=== PATIENT | male | born 1940 | race Caucasian/White ===

== ENCOUNTER → 2020-08-23 12:49 | Outpatient (BNVA) | payer MEDICARE, SELFPAY | PROVIDERS: PCP Internal Medicine; Visit Provider Urology | DX: C61 Malignant neoplasm of prostate (principal); R35.1 Nocturia; Z79.899 Other long term (current) drug therapy | CPT/HCPCS: 99214 ==

== ENCOUNTER → 2021-01-31 13:16 | Outpatient (BNVA) | payer MEDICARE, SELFPAY | PROVIDERS: PCP Internal Medicine; Visit Provider Urology | DX: Z13.9 Encounter for screening, unspecified (principal); N40.1 Benign prostatic hyperplasia with lower urinary tract symptoms; N13.8 Other obstructive and reflux uropathy | CPT/HCPCS: 81002; 99212 ==

== ENCOUNTER → 2021-06-06 15:18 | Outpatient (BNVA) | payer MEDICARE, SELFPAY | PROVIDERS: PCP Internal Medicine; Visit Provider Urology | DX: N40.1 Benign prostatic hyperplasia with lower urinary tract symptoms (principal); R35.1 Nocturia; R39.12 Poor urinary stream; C61 Malignant neoplasm of prostate; Z79.899 Other long term (current) drug therapy | CPT/HCPCS: 99212 ==

== ENCOUNTER → 2021-12-05 10:44 | Outpatient (BNVA) | payer MEDICARE, SELFPAY | PROVIDERS: Visit Provider Urology | DX: C61 Malignant neoplasm of prostate (principal) | CPT/HCPCS: 99212 ==

== ENCOUNTER 2022-04-08 13:19 | Outpatient (REF) | payer MEDICARE, SELFPAY | END 2022-04-08 13:20 | disposition home or self-care (01) | LOC: HO.LAB 13:19 | PROVIDERS: Visit Provider Urology | DX: N39.0 Urinary tract infection, site not specified (principal); N40.0 Benign prostatic hyperplasia without lower urinary tract symptoms; C61 Malignant neoplasm of prostate | CPT/HCPCS: 51798; 87086; 87088; 87186; 99212 ==

== ENCOUNTER → 2022-08-07 11:05 | Outpatient (BNVA) | payer MEDICARE, SELFPAY | PROVIDERS: Visit Provider Urology | DX: C61 Malignant neoplasm of prostate (principal); N40.0 Benign prostatic hyperplasia without lower urinary tract symptoms | CPT/HCPCS: 51798; 99212 ==

== ENCOUNTER → 2022-12-03 10:35 | Outpatient (BNVA) | payer MEDICARE, SELFPAY | PROVIDERS: Visit Provider Urology | DX: C61 Malignant neoplasm of prostate (principal); N39.0 Urinary tract infection, site not specified; N52.1 Erectile dysfunction due to diseases classified elsewhere; E11.69 Type 2 diabetes mellitus with other specified complication; Z79.899 Other long term (current) drug therapy | CPT/HCPCS: Q3014 ==

== ENCOUNTER → 2023-02-24 09:40 | Outpatient (BNVA) | payer MEDICARE, SELFPAY | PROVIDERS: Visit Provider Urology | DX: C61 Malignant neoplasm of prostate (principal) | CPT/HCPCS: 99212 ==

== ENCOUNTER 2023-08-25 08:22 | Outpatient (AMB) | payer MEDICARE, SELFPAY ==
--- NOTE | 2023-08-25 08:23 | A.OFFVIS_ITS ---
Intake Intake Visit Reasons: 6M PSA(set) Intake Note: Patient is present for Telephone PSA Follow Up Urology Med: Finasteride Allergies: NKDA Blood Thinners: None PSA: 7.5 ng/dL 08/03/2023 Art Installer Required: No Allergies No Known Allergies [No Known Allergies*] Allergy (Verified 12/03/22 10:36) Medication List - Last Reconciled 08/25/23 by Nato Bray MD benazepril 20 mg PO DAILY benazepril 10 mg PO DAILY finasteride 5 mg PO DAILY 90 days prednisone mg PO prednisone mg PO TID rosuvastatin 10 mg PO BEDTIME sulfamethoxazole-trimethoprim 800-160 mg (Bactrim DS) 1 tab PO BID 5 days HPI HPI Comments History of Present Illness Details Brad is a pleasant male. He is a patient of Dr. Bruno. He is seen for the following urologic conditions - prostate cancer - BPH Telemedicine Evaluation 15 min Consultation Doximity Bonnie Video attempted Prostate cancer follow-up PSA continues to slowly rise Would benefit from 18 months intermittent hormone therapy - he had no objection to this approach PSA stable compared to 12 months ago Primary storage issue nocturia x2 but drinks beer before going to bed Continue PSA follow-up every 6 months Prostate cancer 2015 intermediate risk active surveillance PSA 09/28 5.6, 05/29 3.2, 11/30 3.0, 03/30 5.3, 07/31 7 6%, 01/29 6.2, 08/01 7.5 Prostate cancer diagnosed by Dr. Layton 2015 Prostate biopsy - Gl 3+4 10%, 40%, 10% Gl 3+3 30% - PNI + in multiple cores Imaging - 06/30 MRI 55gm No area of interest LISBET 2+ enlarged question of small nodule right side BPH symptoms with weak stream and urgency and nocturia Current medications finasteride 5 mg Progressive symptoms nocturia and weakness of stream responding to medications PFSH Medical History Basal cell carcinoma BPH (benign prostatic hyperplasia) Elevated blood pressure reading in office with diagnosis of hypertension Erectile dysfunction HTN (hypertension) Hyperlipemia, mixed Lower abdominal pain Prostate cancer Surgical History History of surgery Review of Systems Const All systems reviewed & are unremarkable except as noted in HPI and below Reports no additional complaints Resp Reports no additional complaints GI Reports no additional complaints Reports as per HPI Musc Reports no additional complaints Physical Exam Telemedicine evaluation Appropriate responses Regular breathing rate and rhythm HEENT Head: Yes normal to inspection Ears: hearing grossly normal bilaterally Eyes General: appearance normal, both eyes and all related structures Neck Neck: Yes normal visual inspection Chest Chest palpation & inspection: normal inspection of the chest Resp Effort & Inspection: normal respiratory effort and able to speak in complete sentences Assessment & Plan Assessment & Plan (1) BPH (benign prostatic hyperplasia): Code(s): N40.0 - Benign prostatic hyperplasia without lower urinary tract symptoms Qualifiers: Lower urinary tract symptom presence: symptoms present Lower urinary tract symptom detail: nocturia Qualified Code(s): N40.1 - Benign prostatic hyperplasia with lower urinary tract symptoms; R35.1 - Nocturia (2) Prostate cancer: Comment: 2016 intermediate risk active surveillance Code(s): C61 - Malignant neoplasm of prostate Plan Continue active surveillance Six month follow-up PSA office Orders: Orders PSA,Total (Free>4and<10) 6 Months C61 - Malignant neoplasm of prostate Patient Instructions: Imaging studies, laboratory and physical exam results were discussed and reviewed in detail. No major barriers to patient understanding were identified. An opportunity to ask questions regarding the treatment plan was provided. All questions were answered. The patient expressed understanding and agreement with the above treatment plan. The patient is aware they should contact our office by phone for worsening of th eir current condition or the appearance of new urologic symptoms. Compliance is encouraged with any medications and followup testing that is ordered. It is a privilege to participate in the urologic care of your patient. If you have any questions or concerns regarding treatment for the above conditions, or other urologic issues, please do not hesitate to contact me. The office telephone contact is [phone]. This note is constructed using voice recognition software. While every effort has been made to ensure accuracy dehydrator errors may have been included. Yours sincerely, Dr Nato Bray MD, [facility] - Urology Providers of Expert, Compassionate Care for the Genitourinary System Telehealth Telehealth Location of provider rendering services: practice address Location of patient: address on file Patient Identification confirmed using: Name, : Yes Telehealth method: video Patient verbally consented to treatment: Yes Patient verbally consented to billing insurance company: Yes Patient informed of any privacy concerns related to visit: Yes Coding Level of Care Code Tele Est Pt Level 3 (72109) Diagnoses Benign prostatic hyperplasia with nocturia N40.1; R35.1 Lower urinary tract symptom presence: symptoms present Lower urinary tract symptom detail: nocturia Prostate cancer C61
== END 2023-08-25 09:17 | disposition home or self-care (01) ==
LOC: HO.HUSH 08:22
PROVIDERS: Visit Provider Urology
DX: N40.1 Benign prostatic hyperplasia with lower urinary tract symptoms (principal); R35.1 Nocturia; Z85.46 Personal history of malignant neoplasm of prostate
CPT/HCPCS: 99213

== ENCOUNTER → 2023-08-25 08:22 | Outpatient (BNVA) | payer MEDICARE, SELFPAY | PROVIDERS: Visit Provider Urology ==

== ENCOUNTER 2024-02-25 09:26 | Outpatient (AMB) | payer MEDICARE, SELFPAY ==
--- NOTE | 2024-02-25 09:42 | A.OFFVIS_ITS ---
Intake Intake Visit Reasons: 6M PSA(set) confirmed Intake Note: Patient is Present for Follow Up Urology Medication: Finasteride Antibiotic Allergies: None Blood Thinners: None PVR: 13 Allergies No Known Allergies [No Known Allergies*] Allergy (Verified 12/03/22 10:36) Medication List - Last Reconciled 02/25/24 by Nato Bray MD benazepril 20 mg PO DAILY benazepril 10 mg PO DAILY finasteride 5 mg PO DAILY 90 days prednisone mg PO prednisone mg PO TID rosuvastatin 10 mg PO BEDTIME sulfamethoxazole-trimethoprim 800-160 mg (Bactrim DS) 1 tab PO BID 5 days HPI HPI Comments History of Present Illness Details Brad is a pleasant male. He is a patient of Dr. Bruno. Mariano diaz is seen for the following urologic conditions - prostate cancer - lower urinary tract symptoms Prostate cancer follow-up PSA continues to slowly rise Prolonged doubling time We will continue to follow Primary storage issue nocturia x2 but drinks beer before going to bed Continue PSA follow-up every 6 months Discussed fly fishing hobby - has stopped wearing weight is and is careful with stability Prostate cancer 2016 intermediate risk active surveillance PSA 09/28 5.6, 05/29 3.2, 11/30 3.0, 03/30 5.3, 07/31 7 6%, 01/29 6.2, 08/01 7.5, 03/02 8.0 Prostate cancer diagnosed by Dr. Layton 2015 Prostate biopsy - Gl 3+4 10%, 40%, 10% Gl 3+3 30% - PNI + in multiple cores Imaging - 06/30 MRI 55gm No area of interest LISBET 2+ enlarged question of small nodule right side BPH symptoms with weak stream and urgency and nocturia Current medications finasteride 5 mg Progressive symptoms nocturia and weakness of stream responding to medications PFSH Medical History Basal cell carcinoma BPH (benign prostatic hyperplasia) Elevated blood pressure reading in office with diagnosis of hypertension Erectile dysfunction HTN (hypertension) Hyperlipemia, mixed Lower abdominal pain Prostate cancer Surgical History History of surgery Review of Systems Const Denies chills and Denies fever(s) Card Reports no additional complaints and Denies syncope Resp Denies cough GI Denies abdominal pain and Denies heartburn Reports as per HPI and Denies change in libido Neuro Denies syncope Psych Denies change in libido Endo Denies change in libido Physical Exam Const General: cooperative, healthy appearing, comfortable and no acute distress Orientation/consciousness: patient oriented x3 HEENT Face and sinus: Yes normal facial exam Mouth: moist mucous membranes Neck Neck: Yes normal visual inspection, Yes full ROM and Yes trachea midline Chest Chest palpation & inspection: normal inspection of the chest Resp Effort & Inspection: normal respiratory effort, able to speak in complete sentences and no respiratory distress GI Inspection: Yes normal to inspection Back/Spine/Pelvis Cervical Spine: normal cervical lordosis Thoracic/Lumbar Spine: thoracic and lumbar spine normal to inspection Skin General skin exam: no rashes or lesions noted Neuro General: patient oriented x3, gait normal, tone normal and moves all extremities Extrem General: Yes normal to inspection and Yes capillary refill normal Office Procedures Post Void Residual Post Residual Void Post Void Residual (PVR): 13 [id number] Void Residual by ultrasound Assessment & Plan Assessment & Plan (1) Prostate cancer: Comment: 2016 intermediate risk active surveillance Code(s): C61 - Malignant neoplasm of prostate (2) BPH (benign prostatic hyperplasia): Code(s): N40.0 - Benign prostatic hyperplasia without lower urinary tract symptoms Qualifiers: Lower urinary tract symptom presence: symptoms present Lower urinary tract symptom detail: nocturia Qualified Code(s): N40.1 - Benign prostatic hyperplasia with lower urinary tract symptoms; R35.1 - Nocturia Plan Continue six-month follow-up Orders: Orders AMB Post Void Residual by ultrasound Today N40.1 - Benign prostatic hyperplasia with lower urinary tract symptoms, R35.1 - Nocturia PSA,Total (Free>4and<10) 6 Months C61 - Malignant neoplasm of prostate Patient Instructions: Imaging studies, laboratory and physical exam results were discussed and reviewed in detail. No major barriers to patient understanding were identified. An opportunity to ask questions regarding the treatment plan was provided. All questions were answered. The patient expressed understanding and agreement with the above treatment plan. The patient is aware they should contact our office by phone for worsening of their current condition or the appearance of new urologic symptoms. Compliance is encouraged with any medications and followup testing that is ordered. It is a privilege to participate in the urologic care of your patient. If you have any questions or concerns regarding treatment for the above conditions, or other urologic issues, please do not hesitate to contact me. The office telephone contact is [phone]. This note is constructed using voice recognition software. While every effort has been made to ensure accuracy metal ceiling builder errors may have been included. Yours sincerely, Dr Nato Bray MD, [facility] - Urology Providers of Expert, Compassionate Care for the Genitourinary System Coding Level of Care Code Est Pt Level 3 (30192) Diagnoses Prostate cancer C61 Benign prostatic hyperplasia with nocturia N40.1; R35.1 Lower urinary tract symptom presence: symptoms present Lower urinary tract symptom detail: nocturia CPT Codes Post Residual Void - PVR CPT Code: 17873-[id number] Void Residual by ultrasound ([id number])
== END 2024-02-25 10:04 | disposition home or self-care (01) ==
PROVIDERS: Visit Provider Urology
DX: C61 Malignant neoplasm of prostate (principal); N40.1 Benign prostatic hyperplasia with lower urinary tract symptoms; R35.1 Nocturia
CPT/HCPCS: 99213

== ENCOUNTER → 2024-02-25 09:26 | Outpatient (BNVA) | payer MEDICARE, SELFPAY | PROVIDERS: Visit Provider Urology | DX: C61 Malignant neoplasm of prostate (principal); N40.1 Benign prostatic hyperplasia with lower urinary tract symptoms; N13.8 Other obstructive and reflux uropathy; R35.1 Nocturia; Z79.899 Other long term (current) drug therapy | CPT/HCPCS: 51798; 99212 ==

== ENCOUNTER 2024-09-14 08:45 | Outpatient (AMB) | payer MEDICARE, SELFPAY ==
--- NOTE | 2024-09-14 08:42 | MHC.OFFVIS ---
Intake Visit Reasons: 6M PSA(set)Elevated Intake Note: Patient is present for 6M PSA (ELEVATED) Urology Medication:FINASTERIDE,BACTRIM Antibiotic Allergy:NONE Blood Thinner:NONE Vice President Of Operations Required: No Allergies No Known Allergies [No Known Allergies*] Allergy (Verified 09/14/24 08:44) HPI Comments Details: Brad is a pleasant male. He is a patient of Dr. Bruno. He is seen for the following urologic conditions - prostate cancer - lower urinary tract symptoms Telemedicine Evaluation 15 min Consultation i'mma Bonnie Video Prostate cancer follow-up PSA continues to slowly rise Prolonged doubling time We will continue to follow Recent colectomy in summer with inflammed bowel found after colonoscopy Primary storage issue nocturia x2 but drinks beer before going to bed Continue PSA follow-up every 6 months Discussed fly [place] hobby - has stopped wearing waders and is careful with stability Prostate cancer 2015 intermediate risk active surveillance - on finasteride PSA 09/28 5.6, 05/29 3.2, 11/30 3.0, 03/30 5.3, 07/31 7 6%, 01/29 6.2, 08/01 7.5, 03/02 8.0, 09/01 8.1 6.7% Prostate cancer diagnosed by Dr. Layton 2015 Prostate biopsy - Gl 3+4 10%, 40%, 10% Gl 3+3 30% - PNI + in multiple cores Imaging - 06/30 MRI 55gm No area of interest LISBET 2+ enlarged question of small nodule right side BPH symptoms with weak stream and urgency and nocturia Current medications finasteride 5 mg Progressive symptoms nocturia and weakness of stream responding to medications PFSH Medical History Basal cell carcinoma BPH (benign prostatic hyperplasia) Elevated blood pressure reading in office with diagnosis of hypertension Erectile dysfunction HTN (hypertension) Hyperlipemia, mixed Lower abdominal pain Prostate cancer Surgical History History of surgery Review of Systems Const All systems reviewed & are unremarkable except as noted in HPI and below Reports no additional complaints Resp Reports no additional complaints GI Reports no additional complaints Reports as per HPI Musc Reports no additional complaints Physical Exam Telemedicine evaluation Appropriate responses Regular breathing rate and rhythm HEENT Head: Yes normal to inspection Ears: hearing grossly normal bilaterally Eyes General: appearance normal, both eyes and all related structures Neck Neck: Yes normal visual inspection Chest Chest palpation & inspection: normal inspection of the chest Resp Effort & Inspection: normal respiratory effort and able to speak in complete sentences Telehealth Telehealth Telehealth Platform: i'mma Location of provider rendering services: practice address Location of patient: address on file Patient Identification confirmed using: Name, : Yes Telehealth method: video Patient verbally consented to treatment: Yes Patient verbally consented to billing insurance company: Yes Patient informed of any privacy concerns related to visit: Yes Minutes spent on Phone/Video with Pt.: 15 Assessment & Plan Assessment & Plan (1) Prostate cancer: Comment: 2016 intermediate risk active surveillance Code(s): C61 - Malignant neoplasm of prostate Category: Medical (2) Complicated urinary tract infection: Code(s): N39.0 - Urinary tract infection, site not specified Category: Medical Plan Six-month follow-up PSA Orders: Orders Prostate Specific Antigen 6 Months C61 - Malignant neoplasm of prostate Medications: Refilled finasteride 5 mg PO DAILY 90 days 90 tabs 1RF R97.20 - Elevated prostate specific antigen [PSA] Patient Instructions: Imaging studies, laboratory and physical exam results were discussed and reviewed in detail. No major barriers to patient understanding were identified. An opportunity to ask questions regarding the treatment plan was provided. All questions were answered. The patient expressed understanding and agreement with the above treatment plan. The patient is aware they should contact our office by phone for worsening of their current condition or the appearance of new urologic symptoms. Compliance is encouraged with any medications and followup testing that is ordered. It is a privilege to participate in the urologic care of your patient. If you have any questions or concerns regarding treatment for the above conditions, or other urologic issues, please do not hesitate to contact me. The office telephone contact is [phone]. This note is constructed using voice recognition software. While every effort has been made to ensure accuracy print press operator errors may have been included. Yours sincerely, Dr Nato Bray MD, [facility] - Urology Providers of Expert, Compassionate Care for the Genitourinary System Coding Level of Care Code Tele Est Pt Level 3 (06358) Diagnoses Prostate cancer C61 Complicated urinary tract infection N39.0
== END 2024-09-14 09:08 | disposition home or self-care (01) ==
LOC: HO.HUSH 08:45
PROVIDERS: Visit Provider Urology
DX: C61 Malignant neoplasm of prostate (principal); N39.0 Urinary tract infection, site not specified
CPT/HCPCS: 99213

== ENCOUNTER 2025-04-28 12:39 | Outpatient (AMB) | payer MEDICARE, SELFPAY ==
--- OUTSIDE RECORDS SUMMARY | 2025-04-27 23:59 | XMS_ITS | Continuity of Care Document ---
Author Organization [facility] Address [address] [place] [address]- Care Team Providers Care Extrusion Press Supervisor Name Role Phone Bushra JOHNS, Maisha Primary Care [id number] Date(s): 04/20/[facility] - 04/27/25 [facility] [address], [place] [address] Attending Physician: Dung Sullivan MD Referring Physician: Leandro JACKSON, Chilo Fairchild Encounter Type: Office Visit Allergies, Adverse Reactions, Alerts No Known Allergies Medications benazepril 10 mg oral tablet TAKE 1/2 (ONE-HALF) TABLET BY MOUTH ONCE DAILY Start Date: 04/20/25 Status: Ordered Repeat number: 1 finasteride 5 mg oral tablet 1 tablet = 5 mg, By Mouth, Daily, 0 Refills, Maintenance, 12/02/22 10:13:00 AM EST, Partial fill upon patient request if the prescription is for a schedule II opioid drug. Start Date: 12/02/22 Status: Ordered Repeat number: 1 rosuvastatin 10 mg oral capsule 0.5 capsule = 5 mg, By Mouth, Daily, # 30 capsule, 0 Refills, Maintenance, 04/20/25 2:04:00 PM EDT, Capsule, Partial fill upon patient request if the prescription is for a schedule II opioid drug. Start Date: 04/20/25 Status: Ordered Quantity: 30.0 Unit: capsule Repeat number: 1 Problem List Condition Confirmation Course Effective Dates Status Health St atus Informant Colon adenoma Confirmed Active Mass of cecum Confirmed Active Hemorrhoids Confirmed Active Spinal stenosis Confirmed Active Procedures Procedure Date Related Diagnosis Body Site Status Appendectomy, Cataract surge ry both eyes, Hernia surgery x3, Knee menicus repair, Colon resection Completed Social History Social History Type Response Smoking Status Former smoker, quit more than 30 days ago entered on: 09/15/23 Sex Sex Representation Male (finding) EKG study * Event Display: ECG 12-Lead Authored Date: Please click on pdf link to open report * Event Display: ECG 12-Lead Authored Date: Ventricular Rate: 68 BPM Atrial Rate: 68 BPM P-R Interval: 250 ms QRS Duration: 110 ms Q-T Interval: 400 ms QTC Calculation(Bazett): 425 ms P Galliano: 36 degrees R Galliano: -67 degrees T Galliano: 16 degrees 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 rate has decreased by 42 bpm Confirmed by ANAMIKA RETANA ([id number]) on 04/20/2025 2:40:06 PM [place]: ANAMIKA RETANA Patient Care team information Care Team Personnel Name: Maisha Tomlinson NP Position: [facility] Outreach Member Role: PCP Address: [address] [place] [address] Telecom: Name: Senia Ramsey RN Position: S RN Member Role: Primary Care Nurse Name: Connie Mejias RN Position: S RN Member Role: Primary Care Nurse Name: Mariana Lind RN Position: S RN Member Role: Primary Care Nurse Name: Sirena Ji RN Position: S RN Member Role: Primary Care Nurse Name: Dexter Tavares RN Position: [facility] RN Member Role: Primary Care Nurse Care Team Related Persons Name: DOMITILA ANDRE Name: GABY NAVARRO Insurance Providers Guarantor name: LUANNE BADILLO Health Plan Information #: 1 Payer: MEDICARE B Payer Identifier: NA Member Number: [id number] Group Number: NA Subscriber Identifier: [id number] Relationship to Subscriber: self Coverage Type: NA Coverage Verification Date: NA Telecom: NA Address: [facility] Information #: 2 Payer: MEDEX SECONDARY ONLY Payer Identifier: NA Member Number: [id number] Group Number: NA Subscriber Identifier: [id number] Relationship to Subscriber: self Coverage Type: Medicare Other Coverage Verification Date: NA Telecom: JONAH Address: NA
--- NOTE | 2025-04-28 12:54 | A.OFFVIS_ITS ---
Intake Visit Reasons: follow up/PSA(labs?) Intake Note: Patient is present for PSA F/U Urology Medication:FINASTERIDE Antibiotic Allergy:NONE Blood Thinner:NONE Pan Devulcanizer Helper Required: No Allergies No Known Allergies (No Known Allergies*) Allergy (Verified 04/28/25 12:55) HPI Comments Details: Brad is a pleasant male. He is a patient of Dr. Bruno. He is seen for the following urologic conditions - prostate cancer - lower urinary tract symptoms Prostate cancer follow-up PSA continues to slowly rise Prolonged doubling time Most recent PSA remains stable Upcoming left knee replacement surgery Primary storage issue nocturia x2 but drinks beer before going to bed Continue PSA follow-up every 6 months Discussed fly [employer] hobby - has stopped wearing waders and is careful with stability Prostate cancer 2015 intermediate risk active surveillance - on finasteride PSA 09/28 5.6, 05/29 3.2, 11/30 3.0, 03/30 5.3, 07/31 7 6%, 01/29 6.2, 08/01 7.5, 03/02 8.0, 09/01 8.1 6.7%, 05/03 8.1 Prostate cancer diagnosed by Dr. Layton 2015 Prostate biopsy - Gl 3+4 10%, 40%, 10% Gl 3+3 30% - PNI + in multiple cores Imaging - 06/30 MRI 55gm No area of interest LISBET 2+ enlarged question of small nodule right side BPH symptoms with weak stream and urgency and nocturia Current medications finasteride 5 mg Progressive symptoms nocturia and weakness of stream responding to medications PFSH Medical History Basal cell carcinoma BPH (benign prostatic hyperplasia) Elevated blood pressure reading in office with diagnosis of hypertension Erectile dysfunction HTN (hypertension) Hyperlipemia, mixed Lower abdominal pain Prostate cancer Surgical History History of surgery Review of Systems Const Denies chills and Denies fever(s) Card Reports no additional complaints and Denies syncope Resp Denies cough GI Denies abdominal pain and Denies heartburn Reports as per HPI and Denies change in libido Neuro Denies syncope Psych Denies change in libido Endo Denies change in libido Physical Exam Const General: cooperative, healthy appearing, comfortable and no acute distress Orientation/consciousness: patient oriented x3 HEENT Face and sinus: Yes normal facial exam Mouth: moist mucous membranes Neck Neck: Yes normal visual inspection, Yes full ROM and Yes trachea midline Chest Chest palpation & inspection: normal inspection of the chest Resp Effort & Inspection: normal respiratory effort, able to speak in complete sentences and no respiratory distress GI Inspection: Yes normal to inspection Back/Spine/Pelvis Cervical Spine: normal cervical lordosis Thoracic/Lumbar Spine: thoracic and lumbar spine normal to inspection Skin General skin exam: no rashes or lesions noted Neuro General: patient oriented x3, gait normal, tone normal and moves all extremities Extrem General: Yes normal to inspection and Yes capillary refill normal Assessment & Plan Assessment & Plan (1) Prostate cancer: Comment: 2016 intermediate risk active surveillance Code(s): C61 - Malignant neoplasm of prostate Category: Medical (2) BPH (benign prostatic hyperplasia): Code(s): N40.0 - Benign prostatic hyperplasia without lower urinary tract symptoms Category: Medical Qualifiers: Lower urinary tract symptom presence: symptoms present Lower urinary tract symptom detail: nocturia Qualified Code(s): N40.1 - Benign prostatic hyperplasia with lower urinary tract symptoms; R35.1 - Nocturia Plan Six-month follow-up PSA Orders: Orders PSA,Total (Free>4and<10) 6 Months C61 - Malignant neoplasm of prostate Patient Instructions: This note is constructed using voice recognition software. While every effort has been made to ensure accuracy application programmer analyst errors may have been included. Imaging studies, laboratory and physical exam results were discussed and reviewed in detail. No major barriers to patient understanding were identified. An opportunity to ask questions regarding the treatment plan was provided. All questions were answered. The patient expressed understanding and agreement with the above treatment plan. The patient is aware they should contact our office by phone for worsening of their current condition or the appearance of new urologic symptoms. Compliance is encouraged with any medications and followup testing that is ordered. It is a privilege to participate in the urologic care of your patient. If you have any questions or concerns regarding treatment for the above conditions, or other urologic issues, please do not hesitate to contact me. The office telephone contact is [phone]. Sincerely, Dr Nato Bray MD, [facility] - Urology Compassionate Specialist Care for the Genitourinary System Coding Level of Care Code Est Pt Level 3 (19595) Complex EM visit Add On G2211 Diagnoses Prostate cancer C61 Benign prostatic hyperplasia with nocturia N40.1; R35.1 Lower urinary tract symptom presence: symptoms present Lower urinary tract symptom detail: nocturia
== END 2025-04-28 13:04 | disposition home or self-care (01) ==
LOC: HO.HUSH 12:39
PROVIDERS: Visit Provider Urology
DX: C61 Malignant neoplasm of prostate (principal); N40.1 Benign prostatic hyperplasia with lower urinary tract symptoms; R35.1 Nocturia
CPT/HCPCS: 99213; G2211

== ENCOUNTER → 2025-04-28 12:39 | Outpatient (BNVA) | payer MEDICARE, SELFPAY | PROVIDERS: Visit Provider Urology | DX: C61 Malignant neoplasm of prostate (principal); N40.1 Benign prostatic hyperplasia with lower urinary tract symptoms; R35.1 Nocturia | CPT/HCPCS: 99212 ==

== ENCOUNTER 2025-10-27 13:17 | Outpatient (AMB) | payer MEDICARE, SELFPAY ==
--- NOTE | 2025-10-27 13:17 | MHC.OFFVIS ---
Intake Visit Reasons: 6M PSA(set) Intake Note: Reason for Visit: Telehealth PSA Follow Up Urology Meds: Finasteride Blood Thinners: None Labs: PSA- 12.2 (10/10/2025) Imaging: None Last PVR: 13ml Human Resources Admin Required: No Allergies No Known Allergies (No Known Allergies*) Allergy (Verified 04/28/25 12:55) HPI Comments Details: Brad is a pleasant male. He is a patient of Dr. Bruno. 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 Layton 2015 Prostate biopsy - Gl 3+4 10%, 40%, 10% Gl 3+3 30% - PNI + in multiple cores Imaging - 06/30 MRI 55gm No area of interest LISBET 2+ enlarged question of small nodule right side BPH symptoms with weak stream and urgency and nocturia Current medications finasteride 5 mg Progressive symptoms nocturia and weakness of stream responding to medications PFSH Medical History Basal cell carcinoma Hyperlipemia, mixed Erectile dysfunction BPH (benign prostatic hyperplasia) HTN (hypertension) Lower abdominal pain Elevated blood pressure reading in office with diagnosis of hypertension Prostate cancer Surgical History History of surgery Review of Systems Const All systems reviewed & are unremarkable except as noted in HPI and below Reports no additional complaints Resp Reports no additional complaints GI Reports no additional complaints Reports as per HPI Musc Reports no additional complaints Physical Exam Telemedicine evaluation Appropriate responses Regular breathing rate and rhythm HEENT Head: Yes normal to inspection Ears: hearing grossly normal bilaterally Eyes General: appearance normal, both eyes and all related structures Neck Neck: Yes normal visual inspection Chest Chest palpation & inspection: normal inspection of the chest Resp Effort & Inspection: normal respiratory effort and able to speak in complete sentences Telehealth Telehealth Telehealth Platform: [facility] [employer] Location of provider rendering services: practice address Location of patient: address on file Patient Identification confirmed using: Name, : Yes Telehealth method: video Patient verbally consented to treatment: Yes Patient verbally consented to billing insurance company: Yes Patient informed of any privacy concerns related to visit: Yes Minutes spent on Phone/Video with Pt.: 15 Assessment & Plan Assessment & Plan (1) Prostate cancer: Comment: 2016 intermediate risk active surveillance Code(s): C61 - Malignant neoplasm of prostate Category: Medical Plan Start bicalutamide Six-month follow-up repeat PSA Orders: Orders PSA,Total (Free>4and<10) 6 Months C61 - Malignant neoplasm of prostate Medications: New bicalutamide 50 mg PO DAILY 90 tabs 1RF 90 days C61 - Malignant neoplasm of prostate Patient Instructions: This note is constructed using voice recognition software. While every effort has been made to ensure accuracy scrap kettle tender errors may have been included. Imaging studies, laboratory and physical exam results were discussed and reviewed in detail. No major barriers to patient understanding were identified. An opportunity to ask questions regarding the treatment plan was provided. All questions were answered. The patient expressed understanding and agreement with the above treatment plan. The patient is aware they should contact our office by phone for worsening of their current condition or the appearance of new urologic symptoms. Compliance is encouraged with any medications and followup testing that is ordered. It is a privilege to participate in the urologic care of your patient. If you have any questions or concerns regarding treatment for the above conditions, or other urologic issues, please do not hesitate to contact me. The office telephone contact is [phone]. Sincerely, Dr Nato Bray MD, [facility] - Urology Compassionate Specialist Care for the Genitourinary System Coding Level of Care Code Tele Est Pt Level 3 (11717) Add On Problem Visit Only Diagnoses Prostate cancer C61
== END 2025-10-27 16:16 | disposition home or self-care (01) ==
LOC: HO.HUSH 13:17
PROVIDERS: Visit Provider Urology
DX: C61 Malignant neoplasm of prostate (principal)
CPT/HCPCS: 99213; G2211